=== PATIENT | male | born 1990 | race Caucasian/White ===

== ENCOUNTER 2016-12-23 01:03 | Emergency (ER) | payer OTHER, MEDICAID ==
[2016-12-23] MEDS ORDERED: Potassium Chloride 20 mEq ER Tab PO STA (02:57)
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
[2016-12-23 03:11] VITALS: BP 116/79; PULSE 85; RESP 18; TEMP 98
[2016-12-23 03:39] VITALS: O2SAT 100
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
== END 2016-12-23 03:11 | disposition home or self-care (01) ==
LOC: C.ER 01:03
DX: S93.401A Sprain of unspecified ligament of right ankle, initial encounter (principal); S63.617A Unspecified sprain of left little finger, initial encounter; V43.52XA Car driver injured in collision with other type car in traffic accident, initial encounter; Y92.410 Unspecified street and highway as the place of occurrence of the external cause